=== PATIENT | female | born 1970 | race Caucasian/White ===

== ENCOUNTER 2017-12-25 07:19 | Day surgery (SDC) | payer BC ==
--- NOTE | 2017-12-25 06:57 | History and Physical Report ---
DATE: 12/25/2017. CHIEF COMPLAINT AND HISTORY OF CHIEF COMPLAINT: This patient presents with a history of intractable lumbar radiculopathy. The patient was initially seen on 11/25/2017. At that time it was noted that she had previously had the neurosurgical placement of a spinal cord stimulator in 03/2015. Although the system appeared to be working well, there had been battery depletion. She is here for replacement of the battery or internal pulse generator for her laminectomy stimulator. PAST MEDICAL HISTORY: Noncontributory. PAST SURGICAL HISTORY: Spinal cord laminectomy stimulator, bariatric surgery, abdominal surgery. MEDICATIONS ON ADMISSION: To be provided. ALLERGIES: None. SOCIAL HISTORY: Caffeine. FAMILY HISTORY: Diabetes, coronary artery disease, hypertension, cancer. REVIEW OF SYSTEMS: The patient is appropriate and in no acute distress. The remainder of the systems review shows glasses. PHYSICAL EXAMINATION: General: Height and weight are unavailable. Vital Signs: Unavailable. HEENT: Within normal limits. Lungs: Clear. Heart: Regular rate and rhythm. Abdomen: Nontender. Musculoskeletal: Examination of the musculoskeletal system shows the pulse generator for the stimulator to be at the left posterior gluteal margin. The incisional site seems to be intact. Her underlying pain pattern is bilateral back with a bilateral lower extremity extension. Motor and sensory field evaluation appears to be intact. Neurologic: Cranial nerves are intact. IMPRESSION: 1. LUMBAR RADICULOPATHY, ICD-10 CODE M54.16 AND M54.17. 2. SPINAL LAMINOTOMY WITH STIMULATOR REPLACEMENT WITH INTERNAL GENERATOR BATTERY DEPLETION. PLAN: The patient is here on an outpatient basis for replacement of the generator for the spinal cord stimulator. The potential risks, side effects, and complications have been reviewed and discussed. JOB NUMBER: [id number] [facility]
[~2017-12-25 07:19] MED LIST: ACETAMINOPHEN 1,000 MG/100 ML BTL IV ONE; CEFAZOLIN 2 Gram 2 GM/50 ML BAG IVPB ONE; FAMOTIDINE 20MG TABLET PO ONE; MECLIZINE 25 MG TABLET PO ONE; METOCLOPRAMIDE 10 MG TABLET PO ONE
[2017-12-25] MEDS ORDERED: FENTANYL PF 100MCG/2ML VIAL IV ONE (07:20)
[2017-12-25] MEDS ORDERED: LIDOCAINE 1% W/EPI 1:200,000 MPF 30ML SQ ONE (07:20)
[2017-12-25] MEDS ORDERED: LIDOCAINE 1% MDV (10MG/ML) 20ML VIAL SQ ONE (07:20)
[2017-12-25] MEDS ORDERED: PROPOFOL 10 MG/ML VIAL IV ONE (07:20)
[2017-12-25] MEDS ORDERED: MIDAZOLAM HCL 2MG/2ML VIAL IV ONE (07:20)
[2017-12-25] MEDS ORDERED: BUPIVACAINE 0.5% W/EPI MPF 30 ML VIAL IVP ONE (07:20)
[2017-12-25] MEDS ORDERED: HYDROCODONE/APAP 7.5/325MG TABLET PO ONE (07:20)
--- NOTE | 2017-12-25 15:59 | Operative Note - [place] ---
DATE OF SURGERY: 12/25/17 PREOPERATIVE DIAGNOSES: 1. POST LUMBAR LAMINECTOMY SYNDROME, ICD-10 CODE = M96.1 WITH RADICULOPATHY ICD- 10 CODE M54.16 AND M54.17. 2. LAMINECTOMY PADDLE STIMULATOR BATTERY DEPLETION. OPERATION: INCISION, SUBCUTANEOUS DISSECTION AND REMOVAL AND REPLACEMENT OF INTERNAL PULSE GENERATOR FOR PADDLE STIMULATOR. SURGEON: ALKA ELLIOTT D.O. ANESTHESIA: LOCAL SEDATION. ANESTHESIA PROVIDER: SAM KIM CRNA. INDICATION: This patient presents with a history of intractable lumbar radiculopathy with a post laminectomy stimulator to manage pain. Over the past number of years, battery depleted, the system has been nonfunctional. She is here for battery internal pulse generator change. PROCEDURE: Intravenous line, vital sign monitoring, IV sedation, prepped and draped sterile technique. Patient position prone. Sterile prep at the left posterior gluteal margin. Using a sterile technique and under imaging with local for infiltration the incisional site for the generator, infiltrated with local, incision made and subcutaneous dissection was conducted to the generator. The generator was exteriorized and from the leads. Antibiotic irrigation and Bovie for hemostasis. The new generator, [employer] WaveWriter placed onto the field and interfaced with the indwelling leads and secured to the posterior fascia of the pouch with nonabsorbable suture then the incision was closed Vicryl for fascia, running subcuticular Vicryl for skin. Dermabond closure. She was transported to the Recovery Room stable. No side- effects from the procedure or the sedation. When fully awake and alert, she was prepared for discharge. Complex programming had been performed in the Recovery Room re-establishing stimulation. DISCHARGE INSTRUCTIONS: 1. Site will remain clean and dry. The Dermabond will allow showering but she cannot sit in a tub or water. 2. Standard medications resumed including Levaquin, the antibiotic, 500 mg once a day for 14 days. 3. The office will contact the patient in 24-48 hours to set up an appointment in the office in 7-10 days to evaluate the site. Until then, her activity level should stay low. All other instructions provided, numbers to contact, problems given. She was then prepared discharged. cc: Dr. Antoine JOB NUMBER: [id number] [facility]
== END 2017-12-25 10:40 | disposition home or self-care (01) ==
LOC: SUR 07:19
PROVIDERS: ATTEND Pain Medicine Interventional Pain Medicine
DX: M96.1 Postlaminectomy syndrome, not elsewhere classified (principal); M54.16 Radiculopathy, lumbar region; M54.17 Radiculopathy, lumbosacral region
CPT/HCPCS: 63685; 00300; 95972; 81025; J3010; J0690; C1820